=== PATIENT | male | born 1990 ===

== ENCOUNTER 2018-07-03 00:18 | Emergency (ER) | payer SELFPAY ==
[~2018-07-03] VITALS: Ht 190.5 cm; Wt 120.2 kg
[2018-07-03] MEDS ORDERED: RX-ALBUTEROL INHALER (PROAIR) 8 GM IH STA (00:37)
[2018-07-03] MEDS ORDERED: RT-ALBUTEROL/IPRATROPIUM 3 ML (DUONEB) VIAL INH ONE (00:45)
[2018-07-03] MEDS ORDERED: PRD20T PO (01:01)
[2018-07-03] MEDS ORDERED: ALBU2.5V4 INH (01:01)
--- NOTE | 2018-07-03 01:01 | ED Respiratory ---
General Chief Complaint: Respiratory Problems Stated Complaint: SOB Nursing Triage Note: Pt complaining of shortness of breath that has gotten progressively worse since yesterday. Pt has a hx of asthma and is out of his home nebulizer medication. Source: patient Exam Limitations: no limitations History of Present Illness Date Seen by Provider: July 03, 2018 Time Seen by Provider: 00:29 Initial Comments This 27-year-old gentleman presents to the emergency room with shortness of air and wheezing. He has a known history of asthma. He recently ran out of his nebulizer treatments and inhalers. He was having difficulty trying to sleep tonight due to the shortness of breath. He is wheezing on exam. He denies fever or significant cough. He does struggle with postnasal drip and allergies. He inconsistently takes Flonase and antihistamines. He does not smoke. Allergies and Home Medications Allergies Coded Allergies: No Known Drug Allergies (Unverified , 07/03/18) Home Medications Albuterol Sulfate 2.5 Mg/3 Ml Vial.neb, 2.5 MG INH Q4H PRN for WHEEZING Prescribed by: NATHAN LOPEZ on 07/03/18100 Prednisone 20 Mg Tab, 20 MG PO DAILY Prescribed by: NATHAN LOPEZ on 07/03/18100 Patient Home Medication List Home Medication List Reviewed: Yes Review of Systems Review of Systems Constitutional: no symptoms reported EENTM: see HPI Respiratory: see HPI Cardiovascular: no symptoms reported Gastrointestinal: no symptoms reported Genitourinary: no symptoms reported Musculoskeletal: no symptoms reported Skin: no symptoms reported Psychiatric/Neurological: No Symptoms Reported Hematologic/Lymphatic: No Symptoms Reported Immunological/Allergic: no symptoms reported Past Lmobsls-Pqxbar-Vhlqef Hx Past Med/Social Hx: Reviewed and Corrections made Patient Social History Alcohol Use: Denies Use Recreational Drug Use: No Smoking Status: Never a Smoker 2nd Hand Smoke Exposure: No Recent Foreign Travel: No Contact w/Someone Who Travel: No Recent Infectious Disease Expo: No Recent Hopitalizations: No Physical Abuse: No Sexual Abuse: No Past Medical History Surgeries: Yes Tonsillectomy Respiratory: Yes Asthma Cardiac: No Neurological: No Genitourinary: No Gastrointestinal: No Musculoskeletal: No Endocrine: No HEENT: No Cancer: No Psychosocial: No Integumentary: No Blood Disorders: No Physical Exam Vital Signs - First Documented 07/03/18 00:20 Temp 98.2 Pulse 92 Resp 22 B/P (MAP) 134/72 (92) Pulse Ox 97 O2 Delivery Room Air Capillary Refill : Less Than 3 Seconds Height: 6'3.00" Weight: 265lbs. oz. 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, no motor/sensory deficits, alert Skin: normal color, warm/dry Progress/Results/Core Measures Suspected Sepsis Recent Fever Within 48 Hours: No Infection Criteria Present: None New/Unexplained Altered Menta: No Sepsis Screen: No Definite Risk SIRS Temperature:98.2 Pulse: 92 Respiratory Rate: 22 Blood Pressure 134 /72 Mean: 92 Results/Orders My Orders Orders - NATHAN BO MD Albuterol/Ipra Inhalation Soln (Duoneb I (07/03/18 00:45) Svn Small Volume Nebulizer (07/03/18 00:37) Rx-Albuterol Inhaler (Rx-Proair) (07/03/18 00:37) Medications Given in ED Current Medications Medications Dose Ordered Sig/Fareed Route Start Time Stop Time Status Last Admin Dose Admin Albuterol/ Ipratropium 3 ml ONCE ONCE INH 07/03/18 00:45 07/03/18 00:46 DC 07/03/18 00:44 3 ML Vital Signs/I&O 07/03/18 07/03/18 00:20 00:44 Temp 98.2 Pulse 92 Resp 22 B/P (MAP) 134/72 (92) Pulse Ox 97 94 O2 Delivery Room Air Room Air Capillary Refill : Less Than 3 Seconds Blood Pressure Mean: 92 Progress Note : Progress Note Patient was treated with a DuoNeb. This dramatically improved his wheezing. He take-home inhaler was provided. See discharge instructions for my discussion with him. Departure Impression Primary Impression: Asthma exacerbation Qualified Codes: J45.901 - Unspecified asthma with (acute) exacerbation Disposition: 01 HOME, SELF-CARE Condition: Improved Departure-Patient Inst. Decision time for Depature: 00:50 Patient Instructions: Asthma, Adult (DC) Add. Discharge Instructions: Avoid any known triggers for your asthma. Use an antihistamine such as Claritin (loratadine) or Zyrtec (cetirizine) daily during allergy season. For sinus drainage use Flonase (fluticasone) 2 sprays in each nostril daily. Antihistamines and fluticasone can be used as maintenance medications. Use your inhaler and nebulizer treatments as prescribed. Follow-up with your primary care provider soon as possible. Return to the emergency room if symptoms are worsening. Fill the prednisone prescription if necessary to help you overcome this asthma exacerbation. All discharge instructions reviewed with patient and/or family. Voiced understanding. Scripts Albuterol Sulfate (Albuterol Sulfate) 2.5 Mg/3 Ml Vial.neb 2.5 MG INH Q4H PRN for WHEEZING, #50 EA 1 Refill Prov: NATHAN BO MD 07/03/18 Prednisone (Prednisone) 20 Mg Tab 20 MG PO DAILY, #4 TAB 0 Refills Prov: NATHAN BO MD 07/03/18 NATHAN BO MD July 03, 2018 01:01
[2018-07-03 01:05] VITALS: BP 129/64
== END 2018-07-03 01:11 | disposition home or self-care (01) ==
LOC: ER 00:21
DX: J45.901 Unspecified asthma with (acute) exacerbation (principal); Z91.14 Patient's other noncompliance with medication regimen; Z79.52 Long term (current) use of systemic steroids; Z90.89 Acquired absence of other organs
CPT/HCPCS: 94640; 99282

== ENCOUNTER 2018-07-09 23:22 | Emergency (ER) | payer SELFPAY ==
[~2018-07-09] VITALS: Ht 190.5 cm; Wt 120.2 kg
[~2018-07-09 23:22] MED LIST: ALBU2.5V4 INH; PRD20T PO
[2018-07-09] MEDS ORDERED: RX-ALBUTEROL INHALER (PROAIR) 8 GM IH STA (23:32)
[2018-07-09] MEDS ORDERED: RT-ALBUTEROL/IPRATROPIUM 3 ML (DUONEB) VIAL INH ONE (23:45)
[2018-07-09] MEDS ORDERED: predniSONE 20 MG TAB PO ONE (23:45)
--- NOTE | 2018-07-10 00:11 | ED Respiratory ---
General Chief Complaint: Respiratory Problems Stated Complaint: TROUBLE BREATHING/ ASTHMA Nursing Triage Note: AMBULATORY TO ED WITH C/O SOA, HX OF ASTHMA. 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 DOES NOT HAVE INHALER AT HOME, HAS NOT PICKED UP FROM PHARMACY DUE TO FINANCIAL REASONS AND TAKE HOME INHALER GIVEN ON 07/03/18 FROM THIS ER IS ALREADY USED HE STATES, "MY KIDS GOT A HOLD OF IT". Source: patient, old records Exam Limitations: no limitations History of Present Illness Date Seen by Provider: July 09, 2018 Time Seen by Provider: 23:28 Initial Comments This 27-year-old man presents to the emergency room with complaints of shortness of air and wheezing. See history above. He was seen in the this ER on July 03 and was prescribed nebulizer medications and prednisone. He did not waste picker any of his medications citing cost as his reason. He reports his children got a hold of his inhaler that was dispensed to him during his last ER visit and wasted the doses. He has not followed up with a primary care provider. He reports he is taking Singulair as prescribed. He reports pain in his back with inspiration. Allergies and Home Medications Allergies Coded Allergies: No Known Drug Allergies (Unverified , 07/03/18) Home Medications Albuterol Sulfate 2.5 Mg/3 Ml Vial.neb, 2.5 MG INH Q4H PRN for WHEEZING Prescribed by: NATHAN LOPEZ on 07/03/18 0101 Prednisone 20 Mg Tab, 20 MG PO DAILY Prescribed by: NATHAN LOPEZ on 07/03/18 0101 Patient Home Medication List Home Medication List Reviewed: Yes Review of Systems Review of Systems Constitutional: no symptoms reported EENTM: no symptoms reported Respiratory: see HPI Cardiovascular: no symptoms reported Gastrointestinal: no symptoms reported Genitourinary: no symptoms reported Musculoskeletal: no symptoms reported Skin: no symptoms reported Psychiatric/Neurological: No Symptoms Reported Hematologic/Lymphatic: No Symptoms Reported Past Mwkbell-Mqqgvs-Kjnbox Hx Past Med/Social Hx: Reviewed Nursing Past Med/Soc Hx Patient Social History Alcohol Use: Denies Use Recreational Drug Use: No Smoking Status: Never a Smoker 2nd Hand Smoke Exposure: No Recent Foreign Travel: No Contact w/Someone Who Travel: No Recent Infectious Disease Expo: No Recent Hopitalizations: No Seasonal Allergies Seasonal Allergies: No Past Medical History Surgeries: Yes Tonsillectomy Respiratory: Yes Asthma Cardiac: No Neurological: No Genitourinary: No Gastrointestinal: No Musculoskeletal: No Endocrine: No HEENT: No Cancer: No Psychosocial: No Integumentary: No Blood Disorders: No Physical Exam Vital Signs - First Documented 07/09/18 07/09/18 23:28 23:38 Temp 97.8 Pulse 85 Resp 22 B/P (MAP) 134/80 (98) Pulse Ox 96 O2 Delivery Room Air Capillary Refill : Less Than 3 Seconds Height: 6'3.00" Weight: 265lbs. oz. 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, no motor/sensory deficits, alert, normal mood/affect, oriented x 3 Skin: normal color, warm/dry Progress/Results/Core Measures Suspected Sepsis Recent Fever Within 48 Hours: No Infection Criteria Present: None New/Unexplained Altered Menta: No Sepsis Screen: No Definite Risk SIRS Temperature:97.8 Pulse: 85 Respiratory Rate: 22 Blood Pressure 134 /80 Mean: 98 Results/Orders My Orders Orders - NATHAN BO MD Chest Pa/Lat (2 View) (07/09/18 23:31) Albuterol/Ipra Inhalation Soln (Duoneb I (07/09/18 23:45) Svn Small Volume Nebulizer (07/09/18 23:31) Prednisone Tablet (Deltasone Tablet) (07/09/18 23:45) Rx-Albuterol Inhaler (Rx-Proair) (07/09/18 23:32) Medications Given in ED Current Medications Medications Dose Ordered Sig/Fareed Route Start Time Stop Time Status Last Admin Dose Admin Prednisone 40 mg ONCE ONCE PO 07/09/18 23:45 07/09/18 23:46 DC 07/09/18 23:35 40 MG Vital Signs/I&O 07/09/18 07/09/18 07/10/18 23:28 23:38 00:24 Temp 97.8 97.8 Pulse 85 88 Resp 22 22 B/P (MAP) 134/80 (98) 130/80 (97) Pulse Ox 96 97 O2 Delivery Room Air Room Air Capillary Refill : Less Than 3 Seconds Blood Pressure Mean: 98 Progress Note : Progress Note Patient received a DuoNeb treatment with improvement. Chest x-ray showed no acute abnormalities. Patient was again dispensed an inhaler and instructed to follow-up with his primary care provider as soon as possible and to fill his medications as soon as possible. He was given a dose of prednisone tonight as well. Diagnostic Imaging Diagonstic Imaging: Xray Plain Films/CT/US/NM/MRI: chest Comments Chest x-ray viewed by me. Report not yet available. Atelectasis noted with no other acute abnormalities. Departure Impression Primary Impression: Asthma exacerbation Qualified Codes: J45.901 - Unspecified asthma with (acute) exacerbation Additional Impression: Noncompliance with medication regimen Disposition: HOME, SELF-CARE Condition: Improved Departure-Patient Inst. Decision time for Depature: 00:05 Patient Instructions: Asthma, Adult (DC) Add. Discharge Instructions: Fill your medications as soon as possible. Continue with your other medications as previously prescribed. Return to the emergency room if you have worsening symptoms. Follow-up with your primary care provider soon as possible. All discharge instructions reviewed with patient and/or family. Voiced understanding. NATHAN BO MD July 10, 2018 00:11
[2018-07-10 00:24] VITALS: BP 130/80
--- NOTE | 2018-07-10 00:24 | NUR ---
AT TIME OF D/C PT STATES "I THOUGHT I WAS SUPPOSED TO GET AN INHALER TO TAKE HOME." RX-INHALER WAS TAKEN FROM [employer] BY THIS WELDING ROBOT OPERATOR/RN AND GIVEN TO RT MELODY TO EDUCATE PT. RT MELODY CALLED TO ASK WHERE INHALER WAS AND STATES SHE GAVE TO PT. SEVERAL STAFF MEMBERS CHECKED ROOM AND COULD NOT FIND INHALER. PT HAS CARGO SHORTS ON WITH MULTIPLE POCKETS BUT STATES INHALER NOT IN POCKET. RT MELODY CAME TO ROOM AND FOUND EMPTY INHALER BOX WITH PT DRIVABILITY TECHNICIAN OUTSIDE IN RED, BIOHAZARD TRASHCAN. PT STILL STATES HE DOES NOT KNOW ANYTHING ABOUT INHALER OR WHERE IT IS, BUT STATES, "I WILL TRY TO GET MY PARENTS TO HELP OUT AND GIVE ME MONEY TO GET MY MEDS". PT LEFT WITHOUT FURTHER INCIDENT.
--- NOTE | 2018-07-10 06:10 | Diagnostic Imaging Report ---
INDICATION: Shortness of breath COMPARISON: None. FINDINGS: Frontal and lateral views the chest demonstrate clear lungs bilaterally. The heart size is normal. There is no pneumothorax. Osseous structures are normal. IMPRESSION: No acute findings. Normal chest. Dictated by: Dictated on workstation # [id number]
== END 2018-07-10 00:24 | disposition home or self-care (01) ==
LOC: EDUNIT# 23:22 → ER 23:24
DX: J45.901 Unspecified asthma with (acute) exacerbation (principal); Z79.52 Long term (current) use of systemic steroids; Z90.89 Acquired absence of other organs; Z91.14 Patient's other noncompliance with medication regimen
CPT/HCPCS: 71046; 94640